=== PATIENT | female | born 1990 | race Caucasian/White ===

== ENCOUNTER → 2025-04-16 | Outpatient (CLI) | payer OTHER | END | disposition home or self-care (01) | LOC: NST 13:25 | PROVIDERS: ATTEND Obstetrics & Gynecology | DX: Z34.83 Encounter for supervision of other normal pregnancy, third trimester (principal) ==

== ENCOUNTER 2025-04-24 02:00 | Inpatient (IN) | payer OTHER ==
[~2025-04-24] VITALS: Ht 170.2 cm; Wt 80.3 kg
[2025-04-24] VITALS (9 sets, daily range): BP systolic 111–133; BP diastolic 60–83
[2025-04-24] MEDS ORDERED: MORPHINE SULFATE 4 MG/ML CARTRIDGE IV PRN (02:15)
[2025-04-24] MEDS ORDERED: RINGERS SOLUTION,LACTATED 1,000 ML IV SCH (02:15)
[2025-04-24 03:27] LABS: BASO % 0.2 % (0.1-1.2); EOS # 0.10 (0.04-0.54); EOS % 0.6 % (0.7-7.0); LYMPH # 2.51 (1.18-3.74); LYMPH % 16.2 % (19.3-53.1); MEAN PLATELET VOLUME 12.50 fl (9.4-12.4); MONO # 0.74 (0.24-0.82); MONO % 4.8 % (4.7-12.5); NEUT # 11.95 (1.56-6.13); NEUT % 77.4 % (34.0-71.1); RED CELL DISTRIBUTION WIDTH 11.9 % (11.6-14.4)
[2025-04-24 03:49] LABS: ALT/SGPT 44.0 U/L (12-78); AST/SGOT 33.0 U/L (15-37); BILIRUBIN TOTAL 0.39 mg/dL (0.3-1.2); BUN CREA RATIO 17.0 (7.0-25.0); CREATININE SERUM 0.71 mg/dL (0.55-1.02); GFR 94.8; GLOBULINA 3.4 G/DL (2.4-3.5); GLUCOSE FASTING 84.0 mg/dL (65-100); OSMOLALITY SERUM 282.0 MOSM/KG (275-295)
[2025-04-24 04:08] LABS: INR < 0.93
[2025-04-24] MEDS ORDERED: PRENATABS RX T1 EACH PO (13:48)
[2025-04-24] MEDS ORDERED: OXYTOCIN 500 ML IV ONE (14:00)
[2025-04-24] MEDS ORDERED: ACETAMINOPHEN WITH CODEINE 1 UDTAB TABLET PO PRN (16:45)
[2025-04-24] MEDS ORDERED: CHLORHEXIDINE GLUCONATE 120 ML BOTTLE TP SCH (16:45)
[2025-04-24] MEDS ORDERED: OXYTOCIN 1,000 ML IV SCH (16:45)
[2025-04-25 00:40] VITALS: BP 125/74
[2025-04-25 05:51] VITALS: BP 119/74
[2025-04-25 08:24] VITALS: BP 110/77
[2025-04-25 16:26] VITALS: BP 119/76
[2025-04-26] VITALS: BP 112/73
[2025-04-26 08:00] VITALS: BP 108/71
== END 2025-04-26 12:43 | disposition home or self-care (01) | DRG 807 ==
LOC: OB/GYN 02:00 → LDR 02:00 → OB/GYN 19:22
PROVIDERS: ADMIT Obstetrics & Gynecology; ATTEND Obstetrics & Gynecology
PROC: 10E0XZZ Delivery of Products of Conception, External Approach (ICD-10-PCS; principal; 2025-04-24)
PROC: 0KQM0ZZ Repair Perineum Muscle, Open Approach (ICD-10-PCS; 2025-04-24)
PROC: 4A1HXCZ Monitoring of Products of Conception, Cardiac Rate, External Approach (ICD-10-PCS; 2025-04-24)
DX: O70.1 Second degree perineal laceration during delivery (principal); Z37.0 Single live birth; Z3A.40 40 weeks gestation of pregnancy